=== PATIENT | female | born 1930 | race Caucasian/White ===

== ENCOUNTER 2019-06-25 17:58 | Inpatient (IN) ==
[2019-06-25] MEDS ORDERED: PANTOPRAZOLE 40 MG VIAL IV STA (18:46)
[2019-06-25] MEDS ORDERED: SODIUM CHLORIDE 0.9% 500 ML IV STA (18:46)
[2019-06-25] MEDS ORDERED: HYDROmorphone 2 MG/1 ML VIAL IV STA (18:46)
[2019-06-25] MEDS ORDERED: ONDANSETRON 4 MG/2 ML VIAL IV STA (18:46)
[2019-06-25 18:58] LABS: Basophils # 0.1 10*3/uL (0.0-0.2); Basophils % 0.7 % (0.0-0.8); Eosinophils # 0.2 10*3/uL (0.0-0.87); Eosinophils % 1.7 % (0.00-10.9); Hematocrit 32.2 VOL% (35.7-47.0); Hemoglobin 10.9 GM/DL (12.0-16.0); Immature Granulocytes % 1.9 %; Immature Granulocytes Absolute 0.19 #; Lymphocytes # 3.2 10*3/uL (1.4-4.0); Lymphocytes % 31.9 % (21.3-54.2); Mean Corpuscular HGB Conc 33.9 GM/DL (32-36); Mean Corpuscular Volume 96.4 FL (87-102); Mean Platelet Volume 10.1 FL (9.6-12.0); Monocytes % 7.4 % (1.7-12.7); Neutrophils % 56.4 % (38.7-73.9); Platelet Count 298 T/CUMM (130-400); Red Blood Count 3.34 MC/CUMM (3.8-5.5); Red Cell Distribution Width 14.7 % (9.3-17.3)
[2019-06-25 19:13] LABS: Alanine Aminotransferase 299 U/L (13-56); Albumin 3.8 G/DL (3.4-5.0); Alkaline Phosphatase 363 U/L (45-117); Amylase 75 U/L (25-115); Aspartate Amino Transferase 716 U/L (0-37); Blood Urea Nitrogen 35 MG/DL (7-18); Calcium 9.8 MG/DL (8.5-10.1); Estimated Glom Filtration Rate 23 ML/MIN; Glucose 86 MG/DL (74-106); Osmolality,Calculated 276.1 MOS/KG (273-304); Total Protein 7.6 G/DL (6.4-8.3); Troponin I < 0.015 NG/ML (0.00-0.045)
[2019-06-25 21:02] LABS: Apearance,Urine CLEAR (Clear); Bilirubin,Urine Negative (Negative); Blood, Urine Negative (Negative); Glucose,Urine (UA) Negative (Negative); Ketones,Urine Negative (Negative); Nitrite,Urine Negative (Negative); Protein,Urine Negative; RBC,Urine 1 /HPF (0-4); Urine Color Yellow (Yellow); Urine Specific Gravity 1.004 (1.001-1.035); Urine Urobilinogen < 2.0 EU/DL (0.2-1.0); WBC,Urine 1 /HPF (0-6)
[2019-06-25] MEDS ORDERED: ONDANSETRON 4 MG/2 ML VIAL IV PRN (22:59)
[2019-06-25] MEDS ORDERED: ESCITALOPRAM 10 MG TABLET PO SCH (23:15)
[2019-06-25] MEDS ORDERED: SELENIUM 200 MCG TABLET PO SCH (23:30)
[2019-06-25] MEDS ORDERED: RIVAROXABAN 15 MG TABLET PO SCH (23:30)
[2019-06-26] MEDS ORDERED: INFLUENZA VIRUS VACCINE 0.5 ML SYRINGE IM ONE (01:13)
[2019-06-26] MEDS: HYDROmorphone 2 MG/1 ML VIAL IV PRN ×2 (01:40→20:20)
[2019-06-26] MEDS: ALPRAZolam 0.25 MG TABLET PO PRN ×2 (01:40→20:14)
[2019-06-26] MEDS: PROPRANOLOL 20 MG TABLET PO SCH ×2 (01:40→20:14)
[2019-06-26] MEDS: ROSUVASTATIN 10 MG TABLET PO SCH (01:43)
[2019-06-26 08:05] LABS: Basophils % 0.7 % (0.0-0.8); Eosinophils # 0.3 10*3/uL (0.0-0.87); Eosinophils % 5.2 % (0.00-10.9); Hematocrit 29.4 VOL% (35.7-47.0); Hemoglobin 9.7 GM/DL (12.0-16.0); Immature Granulocytes % 2.4 %; Immature Granulocytes Absolute 0.14 #; Lymphocytes # 1.6 10*3/uL (1.4-4.0); Lymphocytes % 27.5 % (21.3-54.2); Mean Platelet Volume 10.3 FL (9.6-12.0); Monocytes % 9.9 % (1.7-12.7); Neutrophils % 54.3 % (38.7-73.9); Platelet Count 280 T/CUMM (130-400); Red Cell Distribution Width 15.2 % (9.3-17.3); White Blood Count 5.8 T/CUMM (4-12)
[2019-06-26 08:32] LABS: Albumin 3.2 G/DL (3.4-5.0); Bilirubin,Total 0.8 MG/DL (0.2-1.0); Calcium 8.7 MG/DL (8.5-10.1); Osmolality,Calculated 282.5 MOS/KG (273-304); Total Protein 6.5 G/DL (6.4-8.3)
[2019-06-26] MEDS ORDERED: FUROSEMIDE 40 MG TABLET PO SCH (09:00)
[2019-06-26] MEDS ORDERED: ASPIRIN CHEW 81 MG TABLET PO SCH (09:00)
[2019-06-26] MEDS: LACTOBACILLUS ACIDOPHILUS/BULGARICUS CAPLET PO SCH (09:54)
[2019-06-26] MEDS: PANTOPRAZOLE 40 MG TABLET PO SCH (09:55)
[2019-06-26] MEDS: CHOLECALCIFEROL 5,000 UNIT TABLET PO SCH (09:55)
[2019-06-26] MEDS: POTASSIUM CHLORIDE 20 MEQ TABLET PO SCH (09:55)
[2019-06-26] MEDS: MULTIVITAMIN (CENTRUM) TABLET PO SCH (09:55)
[2019-06-26] MEDS: MAGNESIUM GLUCONATE 500 MG TABLET PO SCH (09:55)
[2019-06-26] MEDS ORDERED: SODIUM CHLORIDE 0.45% 250 ML IV ONE (12:21)
[2019-06-26] MEDS: ESCITALOPRAM 10 MG TABLET PO SCH (20:14)
[2019-06-26] MEDS ORDERED: SELENIUM 200 MCG TABLET PO SCH (21:00)
[2019-06-27 05:39] LABS: Basophils # 0.1 10*3/uL (0.0-0.2); Eosinophils # 0.4 10*3/uL (0.0-0.87); Eosinophils % 8.5 % (0.00-10.9); Hematocrit 28.3 VOL% (35.7-47.0); Hemoglobin 9.2 GM/DL (12.0-16.0); Immature Granulocytes % 2.4 %; Immature Granulocytes Absolute 0.12 #; Lymphocytes # 1.6 10*3/uL (1.4-4.0); Lymphocytes % 31.4 % (21.3-54.2); Mean Corpuscular HGB Conc 32.5 GM/DL (32-36); Mean Corpuscular Volume 98.3 FL (87-102); Mean Platelet Volume 9.6 FL (9.6-12.0); Monocytes % 12.8 % (1.7-12.7); Neutrophils % 43.9 % (38.7-73.9); Platelet Count 250 T/CUMM (130-400); Red Blood Count 2.88 MC/CUMM (3.8-5.5); Red Cell Distribution Width 15.2 % (9.3-17.3); White Blood Count 4.9 T/CUMM (4-12)
[2019-06-27 06:05] LABS: Osmolality,Calculated 287.1 MOS/KG (273-304)
[2019-06-27 08:34] LABS: Albumin 3.2 G/DL (3.4-5.0); Bilirubin,Direct 0.2 MG/DL (0.0-0.20); Bilirubin,Indirect 0.4 MG/DL (0.0-1.0); Bilirubin,Total 0.6 MG/DL (0.2-1.0); Total Protein 6.3 G/DL (6.4-8.3)
[2019-06-27] MEDS: POTASSIUM CHLORIDE 20 MEQ TABLET PO SCH (09:28)
[2019-06-27] MEDS: PANTOPRAZOLE 40 MG TABLET PO SCH (09:28)
[2019-06-27] MEDS: MAGNESIUM GLUCONATE 500 MG TABLET PO SCH (09:28)
[2019-06-27] MEDS: LACTOBACILLUS ACIDOPHILUS/BULGARICUS CAPLET PO SCH (09:28)
[2019-06-27] MEDS: MULTIVITAMIN (CENTRUM) TABLET PO SCH (09:28)
[2019-06-27] MEDS: CHOLECALCIFEROL 5,000 UNIT TABLET PO SCH (09:29)
[2019-06-27] MEDS: ESCITALOPRAM 10 MG TABLET PO SCH (20:49)
[2019-06-27] MEDS: ACETAMINOPHEN 500 MG TABLET PO PRN (20:49)
[2019-06-27] MEDS: PROPRANOLOL 20 MG TABLET PO SCH (20:49)
[2019-06-27] MEDS: ALPRAZolam 0.25 MG TABLET PO PRN (20:57)
[2019-06-27] MEDS ORDERED: ROSUVASTATIN 10 MG TABLET PO SCH (21:30)
[2019-06-28] MEDS: ROSUVASTATIN 10 MG TABLET PO SCH (00:40)
[2019-06-28] MEDS: PANTOPRAZOLE 40 MG TABLET PO SCH (08:26)
[2019-06-28] MEDS: POTASSIUM CHLORIDE 20 MEQ TABLET PO SCH (08:26)
[2019-06-28] MEDS: CHOLECALCIFEROL 5,000 UNIT TABLET PO SCH (08:26)
[2019-06-28] MEDS: MULTIVITAMIN (CENTRUM) TABLET PO SCH (08:26)
[2019-06-28] MEDS: MAGNESIUM GLUCONATE 500 MG TABLET PO SCH (08:26)
[2019-06-28] MEDS: LACTOBACILLUS ACIDOPHILUS/BULGARICUS CAPLET PO SCH (08:26)
[2019-06-28] MEDS: ACETAMINOPHEN 500 MG TABLET PO PRN (11:02)
[2019-06-28] MEDS: PROPRANOLOL 20 MG TABLET PO SCH (20:55)
[2019-06-28] MEDS: HYDROmorphone 2 MG/1 ML VIAL IV PRN (20:55)
[2019-06-28] MEDS: ESCITALOPRAM 10 MG TABLET PO SCH (20:55)
[2019-06-28] MEDS ORDERED: ALUMINUM/MAGNES/SIMETH MAX STR 30 ML UDCUP PO PRN (22:32)
[2019-06-29 05:57] LABS: Basophils # 0.1 10*3/uL (0.0-0.2); Basophils % 0.7 % (0.0-0.8); Eosinophils # 0.5 10*3/uL (0.0-0.87); Eosinophils % 6.9 % (0.00-10.9); Hematocrit 28.7 VOL% (35.7-47.0); Hemoglobin 9.1 GM/DL (12.0-16.0); Immature Granulocytes % 1.1 %; Immature Granulocytes Absolute 0.08 #; Lymphocytes # 2.3 10*3/uL (1.4-4.0); Lymphocytes % 32.5 % (21.3-54.2); Mean Corpuscular HGB Conc 31.7 GM/DL (32-36); Mean Platelet Volume 9.9 FL (9.6-12.0); Monocytes % 6.6 % (1.7-12.7); Neutrophils % 52.2 % (38.7-73.9); Platelet Count 279 T/CUMM (130-400); White Blood Count 7.1 T/CUMM (4-12)
[2019-06-29 06:15] LABS: Calcium 8.8 MG/DL (8.5-10.1); Osmolality,Calculated 288.1 MOS/KG (273-304)
[2019-06-29] MEDS: PANTOPRAZOLE 40 MG TABLET PO SCH ×2 (08:19→20:23)
[2019-06-29] MEDS: MULTIVITAMIN (CENTRUM) TABLET PO SCH (08:19)
[2019-06-29] MEDS: POTASSIUM CHLORIDE 20 MEQ TABLET PO SCH (08:20)
[2019-06-29] MEDS: MAGNESIUM GLUCONATE 500 MG TABLET PO SCH (08:20)
[2019-06-29] MEDS: LACTOBACILLUS ACIDOPHILUS/BULGARICUS CAPLET PO SCH (08:20)
[2019-06-29] MEDS: CHOLECALCIFEROL 5,000 UNIT TABLET PO SCH (08:20)
[2019-06-29] MEDS: ACETAMINOPHEN 500 MG TABLET PO PRN ×2 (10:40→14:53)
[2019-06-29] MEDS: ALPRAZolam 0.25 MG TABLET PO PRN (20:23)
[2019-06-29] MEDS: ESCITALOPRAM 10 MG TABLET PO SCH (20:23)
[2019-06-29] MEDS: PROPRANOLOL 20 MG TABLET PO SCH (20:23)
[2019-06-30 04:33] LABS: Basophils # 0.1 10*3/uL (0.0-0.2); Basophils % 0.9 % (0.0-0.8); Eosinophils # 0.5 10*3/uL (0.0-0.87); Eosinophils % 8.7 % (0.00-10.9); Hematocrit 28.6 VOL% (35.7-47.0); Hemoglobin 9.2 GM/DL (12.0-16.0); Immature Granulocytes % 1.2 %; Immature Granulocytes Absolute 0.07 #; Lymphocytes # 2.2 10*3/uL (1.4-4.0); Lymphocytes % 38.8 % (21.3-54.2); Mean Corpuscular HGB Conc 32.2 GM/DL (32-36); Mean Corpuscular Volume 97.6 FL (87-102); Mean Platelet Volume 9.8 FL (9.6-12.0); Monocytes % 8.1 % (1.7-12.7); Neutrophils % 42.3 % (38.7-73.9); Platelet Count 285 T/CUMM (130-400); Red Blood Count 2.93 MC/CUMM (3.8-5.5); White Blood Count 5.8 T/CUMM (4-12)
[2019-06-30 05:15] LABS: Albumin 2.9 G/DL (3.4-5.0); Bilirubin,Total 0.4 MG/DL (0.2-1.0); Calcium 9.2 MG/DL (8.5-10.1); Osmolality,Calculated 284.3 MOS/KG (273-304); Total Protein 6.1 G/DL (6.4-8.3)
[2019-06-30] MEDS: POTASSIUM CHLORIDE 20 MEQ TABLET PO SCH (09:27)
[2019-06-30] MEDS: PANTOPRAZOLE 40 MG TABLET PO SCH (09:27)
[2019-06-30] MEDS: LACTOBACILLUS ACIDOPHILUS/BULGARICUS CAPLET PO SCH (09:27)
[2019-06-30] MEDS: CHOLECALCIFEROL 5,000 UNIT TABLET PO SCH (09:28)
[2019-06-30] MEDS: MAGNESIUM GLUCONATE 500 MG TABLET PO SCH (09:28)
[2019-06-30] MEDS: MULTIVITAMIN (CENTRUM) TABLET PO SCH (09:28)
[2019-06-30 12:18] VITALS: BP 146/60
== END 2019-06-30 16:50 | disposition home or self-care (01) | DRG 445 ==
LOC: N.ED 17:58 → SUATTDRO 22:59 → N.EDINP 22:59 → N.5E 06-26 00:11
PROVIDERS: ADMIT Internal Medicine; ATTEND Internal Medicine